=== PATIENT | male | born 1985 | race American Indian/Alaskan Native ===

== ENCOUNTER 2019-03-18 21:10 | Emergency (ER) | payer BC, OTHER ==
[2019-03-18 21:20] VITALS: BP 146/72
--- NOTE | 2019-03-18 21:41 | EDM.PDOC ---
ED HPI GENERAL MEDICAL PROBLEM - General Chief Complaint: Chest Pain Stated Complaint: CHEST FEELS HEAVY PER PT Time Seen by Provider: 03/18/19 21:30 Source of Information: Reports: Patient History Limitations: Reports: No Limitations - History of Present Illness INITIAL COMMENTS - FREE TEXT/NARRATIVE: This 33 yo male patient reports to the ED due to left sided chest pain. The patient reports he first noticed symptoms this morning at 0500 when he got up. The patient reports he has had intermittent chest pain throughout the day. The patient reports some pain in his left posterior shoulder at this time. The patient reports he has not taken anything for his symptoms. The patient has not been seen for his current symptoms. Onset: Today Onset Date: 03/18/19 Onset Time: 05:00 Duration: Intermittent Location: Reports: Chest (left sided) Quality: Reports: Ache, Dull Severity: Moderate Improves with: Reports: None Worsens with: Reports: None Context: Reports: Other Associated Symptoms: Reports: Chest Pain Left Chest Pain Score (Numeric/FACES): 5 - Related Data Allergies Allergy/AdvReac Type Severity Reaction Status Date / Time No Known Allergies Allergy Verified 03/18/19 21:20 Home Meds: Home Meds metFORMIN [Glucophage XR] 1,000 mg PO BID 02/25/16 [History] Insulin Detemir [Levemir Flextouch] 12 units SQ QPM 03/18/19 [History] Lisinopril 10 mg PO DAILY 03/18/19 [History] Rosuvastatin Calcium 10 mg PO DAILY 03/18/19 [History] glipiZIDE [Glucotrol] 10 mg PO BID 03/18/19 [History] Past Medical History Other HEENT History: Wearing corrective lenses Cardiovascular History: Reports: High Cholesterol, Hypertension Other Cardiovascular History: Borderline Blood pressure Endocrine/Metabolic History: Reports: Diabetes, Type II Other Endocrine/Metabolic History: borderline DM - Past Surgical History GI Surgical History: Reports: Appendectomy Social & Family History - Tobacco Use Smoking Status *Q: Never Smoker Second Hand Smoke Exposure: No - Recreational Drug Use Recreational Drug Use: No ED ROS GENERAL - Review of Systems Review Of Systems: ROS reveals no pertinent complaints other than HPI. ED EXAM, GENERAL - Physical Exam Exam: See Below Exam Limited By: No Limitations General Appearance: Alert, WD/WN, No Apparent Distress, Obese Eye Exam: Bilateral Eye: EOMI, Normal Inspection, PERRL Ears: Normal External Exam, Normal Canal, Hearing Grossly Normal, Normal TMs Nose: Normal Inspection, Normal Mucosa, No Blood Throat/Mouth: Normal Inspection, Normal Lips, Normal Teeth, Normal Gums, Normal Oropharynx, Normal Voice, No Airway Compromise Head: Atraumatic, Normocephalic Neck: Normal Inspection, Supple, Non-Tender, Full Range of Motion Respiratory/Chest: No Respiratory Distress, Lungs Clear, Normal Breath Sounds, No Accessory Muscle Use, Chest Non-Tender Cardiovascular: Normal Peripheral Pulses, Regular Rate, Rhythm, No Edema, No Gallop, No JVD, No Murmur, No Rub GI/Abdominal: Normal Bowel Sounds, Soft, Non-Tender, No Organomegaly, No Distention, No Abnormal Bruit, No Mass, Other (obese) (Male) Exam: Deferred Rectal (Males) Exam: Deferred Back Exam: Normal Inspection, Full Range of Motion, NT Extremities: Normal Inspection, Normal Range of Motion, Non-Tender, Normal Capillary Refill, No Pedal Edema Neurological: Alert, Oriented, CN II-XII Intact, Normal Cognition, Normal Gait, Normal Reflexes, No Motor/Sensory Deficits Psychiatric: Normal Affect, Normal Mood Skin Exam: Warm, Dry, Intact, Normal Color, No Rash Lymphatic: No Adenopathy Course - Vital Signs Last Recorded V/S: Last Vital Signs Temp 36.8 C 03/18/19 21:15 Pulse 71 03/18/19 21:15 Resp 18 03/18/19 21:15 BP 146/72 H 03/18/19 21:15 Pulse Ox 95 03/18/19 21:15 - Orders/Labs/Meds Orders: Active Orders 24 hr Category Date Time Status EKG Documentation Completion [RC] URGENT Care 03/18/19 21:25 Ordered Chest 2V [CR] Urgent Exams 03/18/19 21:26 Ordered Labs: Laboratory Tests 03/18/19 03/18/19 Range/Units 21:32 21:32 WBC 11.4 H (5.0-10.0) 10^3/uL RBC 5.17 (4.6-6.2) 10^6/uL Hgb 13.8 L (14.0-18.0) g/dL Hct 42.9 (40.0-54.0) % MCV 83.0 (80-100) fL MCH 26.7 L (27.0-34.0) pg MCHC 32.2 L (33.0-35.0) g/dL Plt Count 289 D (150-450) 10^3/uL Neut % (Auto) 61.8 (42.2-75.2) % Lymph % (Auto) 27.8 (20.5-50.1) % [place] % (Auto) 6.4 (2-8) % Eos % (Auto) 3.3 H (1.0-3.0) % Baso % (Auto) 0.7 (0.0-1.0) % Sodium 139 (135-145) mmol/L Potassium 4.7 (3.6-5.0) mmol/L Chloride 99 L (101-111) mmol/L Carbon Dioxide 31.0 (21.0-31.0) mmol/L Anion Gap 13.7 BUN 21 H (7-18) mg/dL Creatinine 0.7 (0.6-1.3) mg/dL Est Cr Clr Drug Dosing TNP Estimated GFR (MDRD) > 60 BUN/Creatinine Ratio 30.00 Glucose 220 H (74-105) mg/dL Calcium 9.7 (8.4-10.2) mg/dl Total Bilirubin 0.5 (0.2-1.0) mg/dL AST 18 (10-42) IU/L ALT 26 (10-60) IU/L Alkaline Phosphatase 84 (42-121) IU/L Troponin I < 0.02 (0.00-0.02) ng/ml Total Protein 8.0 (6.7-8.2) g/dl Albumin 4.0 (3.2-5.5) g/dl Globulin 4.0 Albumin/Globulin Ratio 1.00 Departure - Departure Time of Disposition: 22:05 Disposition: Home, Self-Care 01 Condition: Fair Clinical Impression: Nonspecific chest pain Instructions: Nonspecific Chest Pain, [id number] Forms: ED Department Discharge Care Plan Goals: The patient was advised of the examination, lab, EKG and x-ray results during the visit. The patient was encouraged to continue to monitor for any additional symptoms. If the patient has any additional symptoms or concerns, the patient should either return to the emergency department or visit his primary care facility. - My Orders Last 24 Hours: My Active Orders 03/18/19 21:25 EKG Documentation Completion [RC] URGENT 03/18/19 21:26 Chest 2V [CR] Urgent - Assessment/Plan Last 24 Hours: My Active Orders 03/18/19 21:25 EKG Documentation Completion [RC] URGENT 03/18/19 21:26 Chest 2V [CR] Urgent
[2019-03-18 21:57] LABS: ANION GAP 13.7; CHLORIDE,CL 99 mmol/L (101-111); SODIUM,NA 139 mmol/L (135-145)
== END 2019-03-18 22:10 | disposition home or self-care (01) ==
LOC: DL.ED 21:10
DX: R07.9 Chest pain, unspecified (principal); I10 Essential (primary) hypertension; E78.00 Pure hypercholesterolemia, unspecified; E11.9 Type 2 diabetes mellitus without complications; Z79.4 Long term (current) use of insulin; Z79.899 Other long term (current) drug therapy
CPT/HCPCS: 36415; 71046; 80053; 84484; 85025; 93005; 99285-25